=== PATIENT | female | born 1955 | race Caucasian/White ===

== ENCOUNTER 2016-09-22 10:52 | Day surgery (SDC) | payer OTHER ==
[~2016-09-22 10:52] MED LIST: BACITRACIN 50,000 UNITS/10 ML SYR IRR ONE; BUPIVACAINE 0.5% 30 ML SDV ONE; CALCIUM CHLORIDE 1 GM/10 ML INJ ONE; DEXAMETHASONE 4 MG/ML VIAL ONE; LIDOCAINE 1% 30 ML SDV ONE; MIDAZOLAM 2 MG/2 ML VIAL ONE; PROPOFOL 200 MG/20 ML VIAL ONE; ROPIVACAINE HCL 20 MG/10 ML INJ EP ONE; THROMBIN (BOVINE) 5,000 UNIT VIAL TP ONE; ceFAZolin 2 GM/DEXTROSE 100 ML IV ONE; fentaNYL 100 MCG/2 ML INJ ONE
[2016-09-22] MEDS ORDERED: CEFAZOLIN 2 GM/DEXTROSE/100 ML BAG IV ONE (11:16)
[2016-09-22] MEDS ORDERED: MIDAZOLAM 2 MG/2 ML VIAL ONE (11:34)
[2016-09-22] MEDS ORDERED: PROPOFOL 200 MG/20 ML VIAL ONE ×3 (12:23→13:45)
[2016-09-22] MEDS ORDERED: BUPIVACAINE 0.25% 30 ML SDV ONE (12:31)
[2016-09-22] MEDS ORDERED: SURGIFLO MATRIX KIT WITH THROMBIN TP ONE (14:29)
[2016-09-22] MEDS ORDERED: fentaNYL 100 MCG/2 ML INJ ONE (15:19)
[2016-09-22] MEDS ORDERED: ONDANSETRON DISINTEGRATING 4 MG TAB PO PRN (15:30)
[2016-09-22] MEDS ORDERED: ENOXAPARIN 40 MG/0.4 ML SYR SC ONE (15:30)
[2016-09-22] MEDS ORDERED: ONDANSETRON 4 MG/2 ML VIAL IVP PRN (15:30)
[2016-09-22] MEDS ORDERED: PROMETHAZINE HCL 25 MG TAB PO PRN (15:31)
[2016-09-22] MEDS ORDERED: CEFAZOLIN 1 GM/DEXTROSE/50 ML BAG IV ONE (15:38)
[2016-09-22] MEDS ORDERED: ONDANSETRON 4 MG/2 ML VIAL ONE (15:55)
[2016-09-22] MEDS ORDERED: OXYCODONE/APAP 5/325 TAB ONE (16:55)
[2016-09-22] MEDS ORDERED: DEXAMETHASONE 4 MG/ML VIAL ONE (17:18)
--- NOTE | 2016-09-23 04:41 | GOP ---
[f rep st] OPERATIVE REPORT DATE OF OPERATION: 09/22/2016 SURGEON: Rosetta Go DPM [employer] MANAGER: Rosie Go DPM ANESTHESIA: MAC. ANESTHESIOLOGIST: Koko Lopez MD. PREOPERATIVE DIAGNOSIS: 1. Bunion hallux abductovalgus deformity, left foot. 2. 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 POSTOPERATIVE DIAGNOSIS: 1. Bunion hallux abductovalgus deformity. 2. 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 3. 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 PROCEDURE PERFORMED: 1. Bunionectomy with double osteotomy. First metatarsal Louise type of osteotomy with screw fixation and Benito procedure with plate and screw fixation. 2. PRP injection right foot Peroneal insertion. FINDINGS: white pasty substance within medial joint capsule and speckled along the joint surfaces on the base of the proximal phalanx, head and along sesamoid groove first metatarsal. subchondral bone cyst within first metatarsal head, suspect this was related to gout. SPECIMENS: Specimen sent, uric acid crystals from the medial capsule for gross and microscopic examination. Platelet rich plasma, approximately 4 cc, was injected into the left foot, into the surgical area, to help enhance postoperative healing. The right foot had been prepped as well and preoperatively a total of 6 cc of the 1:1:1 mix of the ropivacaine, lidocaine and Marcaine plain injected ankle joint level. Platelet rich plasma, approximately 6 cc, was injected into her areas of recalcitrant pain.proximal to and at the base of the 5th metatarsal along the peroneals and peroneal brevis insertion. Kerlix and an Philip bandage was applied. In postoperative recovery, the patient was doing well. Her will be providing her transportation home. She was fitted with a cryo cuff. I reviewed the details of the intraoperative findings and how there was a stress fracture /fragmentation of the capital fragment , however site was successfully fixated and stable. Noting the degenerative changes in the joint, it is possible she may need a joint fusion depending on how she progresses postoperatively. ESTIMATED BLOOD LOSS: Less than 10 cc. INDICATIONS: Painful bunion deformity, present for years, progressively getting worse. At this time limiting her walking and activities and she likes to walk for exercise. At this time, she elects to proceed with surgery, as she feels the bunion is causing her to compensate in her knee and extremity. DESCRIPTION OF PROCEDURE: Patient was brought into the operating room, placed on the operating table in the supine position. Intravenous sedation administered by the Anesthesiologist. A posterior tibial and peripheral nerve block was obtained utilizing a total of 20 cc of 1:1:1 mix of 0.2% ropivacaine, 1% lidocaine plain and 0.5% Marcaine plain. The lower extremity was prepped and draped in the usual sterile manner. After the limb was elevated, exsanguinated with an Esmarch bandage an ankle tourniquet was inflated to 230 mmHg and the procedure was begun. Webril padding utilized under the ankle cuff. Attention was directed toward the dorsal medial aspect of the 1st metatarsophalangeal joint where a linear incision was created. Incision was carefully deepened with care of neurovascular structures and clamp and cauterized bleeders. As the incision was created through the medial capsule, and pea size section of white chalky substance was identified,this was excised and sent to Pathology for gross and microscopic examination. Findings consistent with that of gouty tophi. Once the joint was exposed, cartilage was noted to be very thin on the met head and pasted with gouty tophi, 50 % of the base of the phalanx bone was exposed on the circumference of the joint. cartilage that was present thin and speckled with gouty tophi. No osteochondral defect present. Attention was directed towards the first web intermetatarsal space where a tight adductor tendon was identified and released. Then the extensor hallucis brevis was also released to reduce lateral pull to the hallux. Attention was redirected medially where utilizing a K-wire as an axis guide and sagittal a V-type osteotomy with a longer dorsal arm was created. Bone was noted to be soft. Cystic along the medial plantar aspect of the metatarsal head, likely related to gout. There was tremendous difficulty in attempt to transpose the capital fragment laterally, and in doing so stress riser developed on the plantar medial cortices. Shift of the capital fragment was at max 3 mm, which is less than optimal; however, I felt that I needed to accept this, and stabilize the capital fragment and reduce risk of any further stress riser or instability. Fixation was achieved with the paragon headless screws, both 2.5 and one measuring 16 mm in length, the other 18. Screws were placed from proximal dorsal to plantar distal to ensure to get the apex off the osteotomy as well as the plantar aspect of the metatarsal head, which thereafter was then noted to be stable. The remaining medial metaphyseal shelf was resected. Suspecting difficulty to shift was related to gout changes in the joint. However, this was not foreseen as there were no findings on digital x-ray to suspect gout, and the sesamoids were without any abnormal gross hypertrophy or enlargement. The wound was copiously irrigated with bacitracin irrigation solution. Benito osteotomy; attention was directed toward the base of the hallux where K- wire and Relily osteotomy guide was utilized to create a V-type osteotomy, apex being lateral proximal, base distal medial. A triangular wedge of bone was resected. K-wire was removed. The hallux was brought into a straighter position. Fixation achieved with a K-wire and then utilizing the paragon plate , the osteotomy was fixated, distal locking screw measuring 12 mm in length, a 2.5 and proximal 2.5 mm screw locking measuring 18 mm in length. C-arm pictures were taken to verify alignment and positioning. Alignment was noted to be satisfactory and fixation solid. C arm pictures taken revealing reduction of the deformity and satisfactory alignment. PRP injected into the joint and medial capsule tissue. Capsular closure achieved with 2-0, 3-0 Vicryl. Skin was closed with 4-0 Prolene. Subcutaneous closure achieved with 4-0 Monocryl and the skin was closed with 4-0 Prolene in a horizontal mattress and simple interrupted suture manner. Tourniquet had been released intraoperative prior to skin closure and a normal hyperemic response was noted to all digits. There were 2 bleeders which were cauterized and tied off. Dressings include Xeroform, 4x4s, fluffs, Ingrid reinforced with tape and an Philip bandage. The patient tolerated the procedure and anesthesia well, although there was a lot of foot movement throughout the procedure. Anesthesiologist felt that she did not appear tin pain. Even with release of ankle tourniquet there was some extermity movement present. ADDITIONAL PROCEDURE: Platelet rich plasma injection to the right foot. ADDITIONAL INJECTABLES: Included 5 cc of 0.25% Marcaine plain. /[id number]/MODL MTDD
== END 2016-09-22 18:21 | disposition home or self-care (01) ==
LOC: FSGY 10:52
PROVIDERS: ATTEND Podiatrist
DX: M20.12 Hallux valgus (acquired), left foot (principal); M21.612 Bunion of left foot; M10.072 Idiopathic gout, left ankle and foot; M67.962 Unspecified disorder of synovium and tendon, left lower leg; C44.701 Unspecified malignant neoplasm of skin of unspecified lower limb, including hip
CPT/HCPCS: 28299; 73620; C1769; C1713; J0690; J1100; J1650; J2250; J2405; J2704; J2795; J3010

== ENCOUNTER → 2016-11-03 | Outpatient (CLI) | payer OTHER | LOC: FIMAGING 13:04 | PROVIDERS: ATTEND Internal Medicine | DX: Z12.31 Encounter for screening mammogram for malignant neoplasm of breast (principal) | CPT/HCPCS: G0202 ==

== ENCOUNTER → 2017-11-08 | Outpatient (CLI) | payer OTHER | LOC: BRMIMAGING 12:42 | PROVIDERS: ATTEND Internal Medicine | DX: Z12.31 Encounter for screening mammogram for malignant neoplasm of breast (principal) ==